=== PATIENT | female | born 1970 | race Caucasian/White ===

== ENCOUNTER 2017-12-21 10:54 | Emergency (ER) | payer OTHER ==
--- NOTE | 2017-12-21 11:47 | RAD ---
THREE VIEWS RIGHT WRIST: INDICATION: Pain. FINDINGS: There is no fracture or dislocation. A focal area of heterotopic density projects at the volar aspec t of the wrist, and is corticated. IMPRESSION: 1. No acute osseous abnormality identified. 2. Focal, heterotopic density involving the volar aspect of wrist. POS: [facility]
== END 2017-12-21 12:09 | disposition home or self-care (01) ==
LOC: ERS 10:54
DX: M65.4 Radial styloid tenosynovitis [de Quervain] (principal); Z87.891 Personal history of nicotine dependence

== ENCOUNTER 2021-03-29 10:35 | Outpatient (CLI) | payer BC | END 2021-03-29 10:36 | disposition home or self-care (01) | LOC: BICMAMMO 10:35 | DX: Z12.31 Encounter for screening mammogram for malignant neoplasm of breast (principal); R92.8 Other abnormal and inconclusive findings on diagnostic imaging of breast; N60.01 Solitary cyst of right breast | CPT/HCPCS: 77063; 77066; 77067; G0279 ==

== ENCOUNTER 2022-03-30 15:09 | Outpatient (CLI) | payer BC | END 2022-03-30 15:10 | disposition home or self-care (01) | LOC: BICMAMMO 15:09 | DX: Z12.31 Encounter for screening mammogram for malignant neoplasm of breast (principal) | CPT/HCPCS: 77063; 77067 ==

== ENCOUNTER 2022-10-24 17:58 | Emergency (ER) | payer BC, MEDICAID | END 2022-10-24 20:55 | disposition home or self-care (01) | LOC: ERS 17:58 | DX: M54.50 Low back pain, unspecified (principal); Z87.891 Personal history of nicotine dependence | CPT/HCPCS: 99283 ==

== ENCOUNTER 2022-12-20 10:19 | Outpatient (CLI) | payer BC | END 2022-12-20 10:20 | disposition home or self-care (01) | LOC: RAD 10:19 | PROVIDERS: ATTEND Nurse Practitioner Family | DX: M54.41 Lumbago with sciatica, right side (principal); M54.42 Lumbago with sciatica, left side; M47.816 Spondylosis without myelopathy or radiculopathy, lumbar region | CPT/HCPCS: 72100 ==

== ENCOUNTER 2023-08-15 08:44 | Outpatient (CLI) | payer BC | END 2023-08-15 08:45 | disposition home or self-care (01) | LOC: BICRAD 08:44 | PROVIDERS: ATTEND Nurse Practitioner Family | DX: R20.2 Paresthesia of skin (principal) ==

== ENCOUNTER 2024-05-11 15:37 | Outpatient (CLI) | payer BC | END 2024-05-11 15:38 | disposition home or self-care (01) | LOC: BICMAMMO 15:37 | PROVIDERS: ATTEND Nurse Practitioner Family | DX: Z12.31 Encounter for screening mammogram for malignant neoplasm of breast (principal) | CPT/HCPCS: 77063; 77067 ==